=== PATIENT | female | born 1990 | race Two or more races ===

== ENCOUNTER 2022-03-30 13:07 | Emergency (ER) | payer SELFPAY ==
[~2022-03-30] VITALS: Ht 152.4 cm; Wt 50.0 kg
[2022-03-30 13:45] VITALS: BP 141/93
[2022-03-30] MEDS ORDERED: LEVA15HF4 INH (20:11)
[2022-03-30] MEDS ORDERED: AMOX-117 PO (20:11)
[2022-03-30] MEDS ORDERED: PRED20TA PO (20:11)
== END 2022-03-30 20:21 | disposition home or self-care (01) ==
LOC: ER 13:08
DX: J40 Bronchitis, not specified as acute or chronic (principal); Z20.822 Contact with and (suspected) exposure to COVID-19; F17.200 Nicotine dependence, unspecified, uncomplicated; Z88.1 Allergy status to other antibiotic agents; I11.0 Hypertensive heart disease with heart failure; Z79.899 Other long term (current) drug therapy
CPT/HCPCS: 71045; 87502; 87503; 87635; 99284; C9803

== ENCOUNTER 2023-02-28 21:39 | Emergency (ER) | payer MEDICAID ==
[~2023-02-28] VITALS: Ht 152.4 cm; Wt 45.5 kg
[~2023-02-28 21:39] MED LIST: LEVA15HF4 INH
[2023-02-28 22:12] VITALS: BP 134/92; PULSE 95; RESP 16; TEMP 97.6; O2SAT 100
[2023-02-28] MEDS ORDERED: ALBU6.7H14 INH (22:17)
[2023-02-28] MEDS ORDERED: SULF1TAB49 PO (22:17)
[2023-02-28] MEDS ORDERED: CEPH-585 PO (22:17)
== END 2023-02-28 22:24 | disposition home or self-care (01) ==
LOC: ER 21:42
DX: L03.311 Cellulitis of abdominal wall (principal); I50.9 Heart failure, unspecified; J40 Bronchitis, not specified as acute or chronic; Z88.1 Allergy status to other antibiotic agents; Z79.899 Other long term (current) drug therapy
CPT/HCPCS: 99283

== ENCOUNTER → 2023-03-18 | Emergency (ER) | payer MEDICAID ==
[~2023-03-18] VITALS: Ht 152.4 cm; Wt 47.4 kg
[~2023-03-18] MED LIST changes: +ALBE200T10 PO; +ALBU6.7H14 INH; +CEPH-585 PO
[2023-03-18 14:39] VITALS: BP 139/89; PULSE 88; RESP 16; TEMP 98.4; O2SAT 100
== END | disposition home or self-care (01) ==
LOC: ER 14:31
DX: B81.8 Other specified intestinal helminthiases (principal); Z88.1 Allergy status to other antibiotic agents; Z79.899 Other long term (current) drug therapy
CPT/HCPCS: 99283

== ENCOUNTER 2023-04-06 21:40 | Emergency (ER) | payer MEDICAID ==
[~2023-04-06] VITALS: Ht 152.4 cm; Wt 47.3 kg
[2023-04-06 21:50] VITALS: BP 146/98; PULSE 102; RESP 18; TEMP 98.2; O2SAT 99
== END 2023-04-07 07:50 | disposition left against medical advice (07) ==
LOC: ER 21:41
DX: Z09 Encounter for follow-up examination after completed treatment for conditions other than malignant neoplasm (principal); Z53.21 Procedure and treatment not carried out due to patient leaving prior to being seen by health care provider
CPT/HCPCS: 99281

== ENCOUNTER 2023-05-26 19:25 | Emergency (ER) | payer MEDICAID ==
[~2023-05-26] VITALS: Ht 152.4 cm; Wt 56.0 kg
[2023-05-26] MEDS ORDERED: TRIA15CR61 TOP (19:46)
[2023-05-26 20:58] VITALS: BP 148/89; PULSE 98; RESP 17; TEMP 98.6; O2SAT 98
== END 2023-05-26 21:00 | disposition home or self-care (01) ==
LOC: ER 19:25
DX: L50.9 Urticaria, unspecified (principal); I50.9 Heart failure, unspecified; Z72.89 Other problems related to lifestyle; Z88.1 Allergy status to other antibiotic agents; Z79.899 Other long term (current) drug therapy
CPT/HCPCS: 99283

== ENCOUNTER 2025-02-17 06:11 | Emergency (ER) | payer MEDICAID ==
[~2025-02-17] VITALS: Ht 152.4 cm; Wt 48.6 kg
[~2025-02-17 06:11] MED LIST changes: -CEPH-585 PO; -LEVA15HF4 INH; +LEVA15HF9 INH
[2025-02-17 06:26] VITALS: BP 142/101; PULSE 88; RESP 16; O2SAT 100
--- NOTE | 2025-02-17 09:32 | Physician Documentation ---
History of Present Illness ~ Chief Complaint: Ear Pain Stated Complaint: EAR PAIN Time Seen by MD: 09:07 Source: patient Mode of Arrival: POV Exam Limitations: no limitations HPI 35 y/o female with c/o right ear pain which she can not state when it started. She states initially it started back in September or October but then states later that it started more recently. She has been putting aquaphor on it. She denies fever, chills, sinus pain, sore throat, chest pain, cough, sob. Medication Reconciliation Allergies: Coded Allergies: vancomycin (Verified Allergy, Unknown, 02/17/25) Scheduled Albendazole (Albendazole), 400 MG PO HS Albuterol Sulfate (Proventil Hfa), 2 PUFFS INH Q6H Scheduled PRN Levalbuterol Tartrate (Xopenex Hfa), 2 PUFFS INH Q4HPRN PRN for wheezing Past Medical History Past Medical History: Congestive Heart Failure Alcohol Use: Occasionally Drug Use: none Lives with: Spouse Lives In: Home Review of Systems All Other Systems at this time: Reviewed and Negative Physical Exam Vital Signs: Temperature: 97.4, Source: Temporal, Heart Rate: 88, Respiratory Rate: 16, BP: 142/101, Pulse Oximetry: 100, Weight: 48.600 Oxygen Flow Rate: 0 Physical Exam General Appearance: Alert, WD/WN. NAD. HEENT: NCAT, PERRL, EOMI. Right ear tragus there is a small open wound, tragus is slightly edematous no drainage, area is ttp, rest of ear normal inspection, normal ear canal and TM. Left ear exam normal. Neck: Supple, trachea midline. No cervical lad. Cardiovascular: RRR. No m/r/g. Lungs: CTAB. Breathing unlabored Extremities: Normal inspection. No edema. Skin: Warm/dry, normal color Neurological: Alert and oriented x4, normal gait. Psychiatric: Affect congruent with mood. Progress Results/Orders Results/Orders Vital Signs 02/17/25 06:26 Temp 97.4 Pulse 88 Resp 16 B/P (MAP) 142/101 Pulse Ox 100 O2 Flow Rate 0 Medical Decision Making Additional information obtaine: N/A Findings na Ear Diff. Dx: Considerations: Include: Abrasion, Cerumen impaction, Foreign bod y, Otitis externa, Barotrauma, Otitis media, Perforation, Referred pain-dental, Referred pain-pharyngitis, Referred pain-sinusitis, Referred pain-TMJ syn., Tympanic Membrane Injury Eye Diff. Dx: Considerations: Unlikely: Other Nose Diff. Dx: Considerations: Unlikely: Other Tooth Diff. Dx: Considerations: Unlikely: Other Throat Diff Dx: Considerations: Unlikely: Other Departure Time of Disposition: 09:33 Disposition: 01 HOME / SELF CARE / HOMELESS Impression: Primary Impression: Open wound of tragus Condition: Stable Discharge Instructions: General Discharge Instructions Additional Instructions: THERE IS NO REDNESS OR OBVIOUS INFECTION, BUT I AM CONCERNED THAT THIS WOUND THAT IS THERE IS HEADING TOWARDS INFECTION GIVEN THE PAIN THAT APPEARS TO HAVE RECENTLY STARTED; HOWEVER, YOU ARE UNABLE TO PROVIDE ME WITH A TIMELINE. THE AREA IS SWOLLEN. IF INCREASING PAIN, DRAINAGE, REDNESS WHILE ON ANTIBIOTICS RETURN TO ER F/U WITH PCP IF THE SORE PERSISTS AFTER ANTIBIOTICS FOR REFERRAL TO DERMATOLOGY Referrals: NO PRIMARY CARE PROVIDER (PCP) Prescriptions Doxycycline Monohydrate (Doxycycline Monohydrate) 100 Mg Capsule 1 CAP PO Q12H for 10 Days, #20 CAP OKAY TO SWITCH TO HYCLATE IF NEEDED FOR INSURANCE PURPOSES Prov: CATINA LOWRY 02/17/25 Education Educated: Patient Educated regarding: diagnosis, treatment, need for follow up Signature Scribe Signature: X Attestation: CATINA DEJESUS Feb 17, 2025 09:32
[2025-02-17] MEDS ORDERED: DOXY-460 PO (09:36)
[2025-02-17 09:58] VITALS: TEMP 97.4
== END 2025-02-17 09:59 | disposition home or self-care (01) ==
LOC: ER 06:12
DX: S01.301A Unspecified open wound of right ear, initial encounter (principal); I50.9 Heart failure, unspecified; Z79.899 Other long term (current) drug therapy; Z72.89 Other problems related to lifestyle; Z88.1 Allergy status to other antibiotic agents; X58.XXXA Exposure to other specified factors, initial encounter; Y93.89 Activity, other specified; Y92.89 Other specified places as the place of occurrence of the external cause; Y99.8 Other external cause status
CPT/HCPCS: 99283